=== PATIENT | female | born 1985 | race African-American/Black ===

== ENCOUNTER 2019-09-30 09:38 | Emergency (ER) | payer SELFPAY ==
[~2019-09-30] VITALS: Ht 152.4 cm; Wt 46.3 kg
[2019-09-30 09:44] VITALS: BP 165/107
[2019-09-30] MEDS ORDERED: TDAP [DIPH/PERTUSSIS/TET] 0.5 ML VIAL IM ONE ×2 (10:30→10:42)
--- NOTE | 2019-09-30 11:00 | NUR ---
Patient discharged to home in stable condition. Written and verbal after care instructions given. Patient verbalizes understanding of instruction.
== END 2019-09-30 11:01 | disposition home or self-care (01) ==
LOC: ER 09:42
DX: S80.01XA Contusion of right knee, initial encounter (principal); V87.8XXA Person injured in other specified noncollision transport accidents involving motor vehicle (traffic), initial encounter; Y93.I9 Activity, other involving external motion; Y92.89 Other specified places as the place of occurrence of the external cause; Y99.8 Other external cause status
CPT/HCPCS: 90715